=== PATIENT | female | born 1985 | race Caucasian/White ===

== ENCOUNTER 2020-03-11 11:57 | Inpatient (IN) ==
[2020-03-11] MEDS ORDERED: ONDANSETRON 4 MG TAB.RAPDIS PO PRN (20:03)
[2020-03-11] MEDS ORDERED: OXYTOCIN/0.9 % SODIUM CHLORIDE 30 UNITS/500 ML BAG IV ONE (20:03)
[2020-03-11] MEDS ORDERED: RINGER'S SOLUTION,LACTATED 1,000 ML IV ONE (20:03)
[2020-03-11] MEDS ORDERED: DEXTROSE 5%-LACTATED RINGERS 1,000 ML IV PRN (20:03)
[2020-03-11] MEDS ORDERED: MISOPROSTOL 100 MCG TABLET VG PRN (20:03)
[2020-03-12] MEDS ORDERED: ONDANSETRON HCL/PF 2 MG/ML VIAL IV PRN (04:29)
[2020-03-12] MEDS ORDERED: NALOXONE HCL 1 MG/1 ML SYRG IV PRN (04:29)
[2020-03-12] MEDS ORDERED: BUPIVACAINE HCL/0.9 % NACL/PF 250 ML EP PRN (04:29)
[2020-03-12] MEDS ORDERED: fentaNYL CITRATE/PF 50 MCG/ML AMPUL IT SCH (04:30)
--- NOTE | 2020-03-12 05:29 | ANES ---
Anesthesia Pre Procedure Eval Vitals/Labs: Last Vital Signs Temp 36.9 C 03/11/20 21:56 Pulse 66 03/11/20 21:56 Resp 16 03/11/20 21:56 BP 123/83 03/11/20 21:56 HOME MEDICATIONS breast pump See Rx Instructions .ROUTE .MEDSUPPLY #1 ea 08/29/19 [Last Taken Unknown] prenat.vits,sarah,tos-irhk-kafmp 1 tab PO DAILY 10/31/19 [Last Taken 03/10/20] valacyclovir 500 mg tablet 500 mg PO BID #60 tab 12/28/19 [Last Taken 03/11/20] Allergies/Adverse Reactions: Allergies Allergy/AdvReac Type Severity Reaction Status Date / Time No Known Allergies Allergy Verified 03/11/20 09:12 - Planned Procedure Planned Procedure: medical induction post dates Medication List Reviewed:: Yes Allergies Verified: Yes Medical History (Last Reviewed 03/12/20 @ 05:27 by Franky Chau CRNA) History of gestational diabetes mellitus (GDM) (Chronic) HSV antigen DIF positive (Chronic) Vitamin D deficiency (Inactive) Onset Date: Unknown Acne (Inactive) Body piercing Onset Date: Unknown Bunion Eczema Hearing loss Hemorrhoids Onset Date: Unknown Tattoos Onset Date: Unknown Wears contact lenses Onset Date: Unknown Anemia (Resolved) Blighted ovum Dysphagia Encounter to establish care with new doctor (Resolved) Gestational diabetes Onset Date: ~2015 Herpes genitalis (Resolved) Screening for depression (Resolved) Onset Date: Unknown Seasonal allergies (Resolved) Onset Date: Unknown Spontaneous Onset Date: ~05/2019 Surgical History (Last Reviewed 03/12/20 @ 05:27 by Franky Chau CRNA) H/O esophagogastroduodenoscopy Onset Date: 07/08/17 [facility]-squamous mucosa with changes consistent with reflux H/O wisdom tooth extraction Onset Date: ~01/2012 History of bunionectomy Onset Date: ~1995 bilateral History of tympanoplasty Onset Date: ~2009 X3 Hx of LASIK Onset Date: ~2004 S/P foot surgery, left Onset Date: ~07/2016 large greater toe was pulled inward. Family History (Last Reviewed 03/12/20 @ 05:27 by Franky Chau CRNA) Mother Hypertension Thyroid disease Father Hypertension Diabetes Cancer colon ca-dx age 56 Sister Thyroid disease Diabetes Brother Anxiety 2 brothers Grandmother Diabetes Arthritis Grandfather CHF (congestive heart failure) Aunt Diabetes paternal - Family Anesthesia History Family History:: no untoward family reactions to anesthesia, no familial bleeding tendencies, no family history of clotting disorders, no family history of premature - Airway/Neck/Teeth Within Normal Limits:: Yes Teeth Condition: intact Denture Type: Full upper Neck Exam: full range of motion Mallampatti Score: 2 Thyromental (T-M) distance: > 6 cm Mandibulo Hyoid distance: > 3 cm - Respiratory Respiratory Physical: lungs clear Smoking Status: Never smoker Sleep Apnea currently treated: No Sleep Apnea by current assessment: No - Cardiovascular Tolerate Activity: Fair Heart Sounds: S1 & S2, Regular - Anesthesia Assessment and Plan ASA Class: PS, II, E Anesthesia Type Plan: Epidural - CSE for labor analgesia
--- NOTE | 2020-03-12 05:51 | ANES ---
Post Anesthesia Discharge - Transfer of Care Transfer of Care handoff given to nurse: Yes - Discharge from PACU Discharge from PACU when meets criteria: Yes - Comfortable post CSE
--- NOTE | 2020-03-12 05:57 | ANES ---
Anesthesia Procedure Note Procedure Note: ANESTHESIA PROCEDURE NOTE Date of Procedure: 03/12/2020 Time of procedure: 5:25 AM. Performed by: DOLLY Crain CRNA, MSN Electric Accounting Machine Operator: Felicia Smith RN. Preprocedure diagnosis: Active labor, labor pain. Post procedure diagnosis: Same. Procedure:Epidural for labor analgesia L3-4. Indications: Labor pain. Findings: See below. Details of the procedure: The patient was placed on the side of the bed in sitting positionand prepped with DuraPrep then draped in a sterile fashion. Ms. Berrios was extremely anxious but also extremely uncomfortable with her contractions. She had tried to defer an epidural but could no longer tolerate labor. Her anxiety appeared to inhibit her ability to maintain an appropriate position for any length of time but eventually she was able to do so. Lidocaine 1% was infiltrated to the skin and subcutaneous tissues at the level of the L3-4 interspace. An 18-gauge Touhy needle was used to approach the epidural space with loss of resistance technique. Once loss of resistance was achieved a 27- gauge spinal needle was passed through the epidural needle and CSF was contacted. After CSF returned, 20 mcg of fentanyl was injected in the spinal needle was removed the epidural catheter was then threaded approximately 4 cm in the epidural needle was removed. The catheter was taped in place and after careful aspiration 3 mL of 1.5% lidocaine with 1-200,000 epinephrine was injected without change in maternal heart rate or sensorium. . EBL: Minimal. Fluids: N/A. Specimen: N/A. Post procedure condition: The patient tolerated the procedure well with good relief. No complications were noted. Thank you for this consultation. Franky Chau CRNA, DOLLY, MSN
--- NOTE | 2020-03-12 06:04 | ANES ---
Post Anesthesia Assessment - Vital Signs Vitals: Last Vital Signs Temp 36.9 C 03/11/20 21:56 Pulse 66 03/11/20 21:56 Resp 16 03/11/20 21:56 BP 123/83 03/11/20 21:56 Airway Patency: Normal - Mental Status Level Of Consciousness: Awake, Alert, Appropriate - Pain Level Pain Score: 0 - N/V Assessment Nausea/Vomiting Presence: None Dehydration:: No - Additional Notes Comments:: After an initial (probable) anxiety attack, now relaxed and comfortable.
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
[2020-03-12] MEDS ORDERED: BISACODYL 10 MG SUPP.RECT RC PRN (07:32)
[2020-03-12] MEDS ORDERED: oxyCODONE HCL/ACETAMINOPHEN 1 TAB TABLET PO PRN (07:32)
[2020-03-12] MEDS ORDERED: BENZOCAINE/MENTHOL 81 SPRAY CAN TP PRN (07:32)
[2020-03-12] MEDS ORDERED: GLYCERIN/WITCH HAZEL LEAF 40 APPL BOX TP PRN (07:32)
[2020-03-12] MEDS ORDERED: OXYTOCIN/0.9 % SODIUM CHLORIDE 30 UNITS/500 ML BAG IV ONE (07:32)
[2020-03-12] MEDS ORDERED: IBUPROFEN 800 MG TABLET PO PRN (07:32)
[2020-03-12] MEDS ORDERED: HYDROCORTISONE 30 APPL TUBE TP PRN (07:32)
[2020-03-12] MEDS ORDERED: SENNOSIDES 8.6 MG TABLET PO PRN (07:32)
--- NOTE | 2020-03-12 07:37 | OR ---
Operative Report - Dictated Report Narrative: Spontaneous vaginal delivery of viable male at 0707 on 03/12/2020 with Apgars 9 and 9, weighing 2794 g in ALEIDA position with left hand at face. Cord clamping delayed approximately 1 minute Placenta delivered complete, intact, with three vessel cord Estimated blood loss: Less than 50 ml Anesthesia: Epidural Lacerations: 1 cm first-degree vaginal laceration repaired with 3-0 Vicryl Rapide due to excessive bleeding. History for MU History for Definition: * The number of deliveries resulting in a live the patient experienced prior to current hospitalization * The previous delivery of live twins or any live multiple gestation is considered one live event. *If primagravida or nulliparous is documented select zero for the number of previous live births. Live Events: Live Events: 2
[2020-03-12] MEDS: DOCUSATE SODIUM 100 MG CAPSULE PO SCH ×2 (10:58→21:13)
[2020-03-12] MEDS: IBUPROFEN 800 MG TABLET PO PRN ×2 (14:39→21:03)
[2020-03-13] MEDS: DOCUSATE SODIUM 100 MG CAPSULE PO SCH (08:27)
--- NOTE | 2020-03-13 13:53 | PN ---
Subjective - Date and Time Seen Date: 03/13/20 Time: 13:51 Objective - Vitals Vitals: Last Vital Signs Temp 36.6 C 03/13/20 11:30 Pulse 69 03/13/20 11:30 Resp 18 03/13/20 11:30 BP 140/84 H 03/13/20 11:30 Pulse Ox 97 03/13/20 11:30 Patient denies complaints. Specifically denies headache, visual changes, or epigastric pain. Lochia wnl abdomen - soft, nontender Uterus -firm, at umbilicus - 1 No calf tenderness Impression: day #1 - s/p spontaneous vaginal delivery. Patient desires early discharge. Plan: Continue routine care. Discharge to home with preeclampsia precautions. Cauti Physician Documentation - Urinary Catheter Management Urethral (Natarajan) Date of Insertion: 03/12/20 Time of Insertion: 06:30 Date of Removal: 03/12/20 Time of Removal: 07:00 Assessment/Plan - Problems/Diagnosis (1) Post-dates Problem: Acute Qualifiers: Post-term type: 40-42 weeks gestation Qualified Code(s): O48.0 - Post-term (2) History of gestational diabetes mellitus (GDM) Problem: Chronic (3) HSV antigen DIF positive Problem: Chronic
--- NOTE | 2020-03-13 13:55 | DS ---
OB Discharge Summary (1) Post-dates Status: Resolved Qualifiers: Post-term type: 40-42 weeks gestation Qualified Code(s): O48.0 - Post-term (2) History of gestational diabetes mellitus (GDM) Status: Chronic (3) HSV antigen DIF positive Status: Chronic Delivery Date: 03/12/20 Delivery Time: 07:07 :: 5 Para:: 3 Gestational weeks:: 40 Gestational days:: 4 Intrapartum Procedures: Spontaneous Vaginal Delivery, Anesthesia - Epidural Procedures: Other - repair 1st degree vaginal laceration Discharge Diagnosis: Term -Delivered - Discharge Information Date of Discharge: 03/13/20 Hospital Course: 34-year-old 5 para 2 admitted at 40-4/7 weeks for Cytotec induction of labor. Patient progressed rapidly and had a normal spontaneous vaginal delivery without complications. course was complicated by a couple elevated blood pressures which resolved spontaneously. Patient never developed preeclamptic symptoms. She was discharged to home with normal instructions with the addition of preeclampsia precautions. Discharge Location: Home Disposition: Home self-care Condition: Good Referrals: Kim Street FNP [Primary Care Provider] - Activity on Discharge:: Activity as tolerated, Pelvic Rest Discharge Diet: General/regular food Additional Patient Instructions (free text): Claudia will see Dr. Mckinney in the office on Continue to take your vitamins one daily. Drink plenty of fluids, lean meat and lots of fruits and vegetables. Rest when your baby rests. Bryant will follow up with Peds on Nurse Bryant every 2-3 hours, and when showing feeding cues, burping after every each breast. Always use safe sleeping practices, always place baby on their back to sleep in their own bed. No stuffed animals, bumper pad, heavy blankets in sleeping area. Bryant blood type is A positive, he has passed his hearing screen in both ears, Thank you for choosing [facility] for your special event. If you have any concerns, or questions please call the [facility] [phone], [facility] [phone] or Peds [phone]. Prescriptions (Any new or edited meds): Ibuprofen [Motrin] 200 - 800 mg PO Q6H PRN #100 tab PRN Reason: Pain Complete Home Medications List: Complete Home Medication List: breast pump See Rx Instructions .ROUTE .MEDSUPPLY #1 ea 08/29/19 prenat.vits,sarah,hnh-sfef-pxyve 1 tab PO DAILY 10/31/19 valacyclovir 500 mg tablet 500 mg PO BID #60 tab 12/28/19 Ibuprofen [Motrin] 200 - 800 mg PO Q6H PRN #100 tab 03/13/20 - Plan Discharge to:: Home Comment:: Routine Discharge Instructions Follow up in office in:: 3-4 weeks - [place] Information Weight (Grams): 2,794 Sex: Male Score 1 min: 9 Score 5 min: 9 Circumcision: Yes Infant Complications: None Other Complications: Hand at face at delivery.
[2020-03-13 14:20] VITALS: BP 128/74
== END 2020-03-13 16:30 | disposition home or self-care (01) | DRG 806 ==
LOC: OB 19:58
PROVIDERS: ADMIT Obstetrics & Gynecology; ATTEND Obstetrics & Gynecology